=== PATIENT | male | born 1950 | race Caucasian/White ===

== ENCOUNTER 2018-04-15 09:29 | Day surgery (SDC) | payer MEDICARE, OTHER ==
[2018-04-10 13:35] VITALS: BMI 29.8
[2018-04-15] MEDS ORDERED: Lidocaine 1% PF 5 ML VIAL ONE (14:06)
[2018-04-15] MEDS ORDERED: PROPOFOL 200 MG/20 ML VIAL ONE (14:06)
--- NOTE | 2018-04-15 14:28 | OP ---
PREOPERATIVE DIAGNOSES: 1. Personal history of colon polyps. 2. Family history of colon cancer. PROCEDURE: After informed consent was obtained, the patient was placed in left lateral decubitus pos ition. Anesthesia was administered per the Anesthesia Department. Forward-viewing colonoscope was i nserted into the rectum and passed to the cecum with ease. The cecum, ileocecal valve, and appendice al orifice were normal. The prep was excellent. The terminal ileum was normal. The ascending, wallace sverse, descending, sigmoid and rectum were normal except for some very small polyps in the splenic f lexure, descending, and sigmoid. They were all removed with cold snare polypectomy. The descending and sigmoid also were notable for diverticula. Retroflexion in the rectum showed small internal hemo rrhoids. ASSESSMENT: 1. Three small colon polyps - status post cold snare polypectomy. 2. Left-sided diverticulosis coli. 3. Small internal hemorrhoids. 4. Otherwise normal ileal colonoscopy. RECOMMENDATIONS: 1. Await histopathology. 2. Repeat colonoscopy pending histopathology. 3. Hold Xarelto until tomorrow.
== END 2018-04-15 13:25 | disposition home or self-care (01) ==
LOC: SDC 09:29
PROVIDERS: ATTEND Internal Medicine Gastroenterology
PROC: 0DBM8ZX Excision of Descending Colon, Via Natural or Artificial Opening Endoscopic, Diagnostic (ICD-10-PCS; principal; 2018-04-15)
PROC: 0DBL8ZX Excision of Transverse Colon, Via Natural or Artificial Opening Endoscopic, Diagnostic (ICD-10-PCS; 2018-04-15)
PROC: 0DBN8ZZ Excision of Sigmoid Colon, Via Natural or Artificial Opening Endoscopic (ICD-10-PCS; 2018-04-15)
DX: Z12.11 Encounter for screening for malignant neoplasm of colon (principal); D12.3 Benign neoplasm of transverse colon; D12.4 Benign neoplasm of descending colon; K63.5 Polyp of colon; K57.30 Diverticulosis of large intestine without perforation or abscess without bleeding; K64.8 Other hemorrhoids; Z86.010 Personal history of colon polyps; Z79.01 Long term (current) use of anticoagulants; Z79.899 Other long term (current) drug therapy; Z80.0 Family history of malignant neoplasm of digestive organs
CPT/HCPCS: 88305; J2001; J2704

== ENCOUNTER 2018-11-22 11:21 | Emergency (ER) | payer MEDICARE, OTHER ==
[2018-11-22 12:09] LABS: #Basophils 0.1 thou/uL (0.0-0.2); #Eosinphils 0.1 thou/uL (0.0-0.7); #Lymphocytes 1.5 thou/uL (1.20-3.40); #Neutrophils 6.5 thou/uL (1.40-6.50); %Basophils 0.7 % (0.0-1.0); %Lymphocytes 16.1 % (21.0-51.0); %Monocytes 10.8 % (0.0-10.0); %Neutrophils 71.4 % (42.0-75.0); Hemoglobin 17.2 g/dL (14.0-18.0); Mean Corpuscular HGB CONC 33.3 g/dL (32.0-36.0); Mean Corpuscular Hemoglobin 30.6 pg (27.0-31.0); Mean Platelet Volume 11.8 fL (7.4-10.4); Platelet Count 164 thou/uL (130-400); Red Blood Cell (RBC) Count 5.63 mill/uL (4.70-6.10); White Blood Cell (WBC) Count 9.1 thou/uL (4.8-10.8)
[2018-11-22 12:16] LABS: ALT (SGPT) 29 U/L (8-55); AST (SGOT) 21 U/L (5-34); Albumin 4.2 g/dL (3.4-4.8); Alkaline Phosphatase 98 U/L (40-150); Anion Gap 12 mmol/L (10-20); BUN (Urea Nitrogen) 16 mg/dL (8.4-25.7); Calc. Creatinine Clearance 0 mL/min (70-130); Carbon Dioxide 25 mmol/L (23-31); Chloride 105 mmol/L (98-107); Estimated GFR-MDRD 68; Glucose 96 mg/dL (80-115); Potassium 4.3 mmol/L (3.5-5.1); Protein, Total 7.2 g/dL (5.8-8.1); Sodium 138 mmol/L (136-145)
--- NOTE | 2018-11-22 12:21 | RAD ---
EXAM: Single view of the chest HISTORY: Dizziness and nausea COMPARISON: 08/08/2013 FINDINGS: Single view of the chest shows a normal sized cardiomediastinal silhouette. The pacemaker is unchanged in position. No consolidation is seen. There is obscurity of the left hemidiaphragm which may represent a small left pleural effusion. The bones are unremarkable. IMPRESSION: Possible small left pleural effusion.
--- NOTE | 2018-11-22 12:35 | CT ---
EXAM: CT brain without contrast HISTORY: Dizziness and nausea COMPARISON: 08/06/2013 TECHNIQUE: Multiple contiguous axial images were obtained and a CT of the brain without contrast. FINDINGS: The brain is normal in morphology and attenuation without focal lesions or confluent areas of infarction. There is no evidence of hydrocephalus, intracranial hemorrhage, or extra-axial fluid collection. The calvarium and overlying soft tissues are unremarkable. A small amount of fluid is seen in the connor ateral maxillary sinuses. The other visualized paranasal sinuses and mastoid air cells are well aerated. IMPRESSION: No evidence of acute intracranial abnormality
== END 2018-11-22 12:55 | disposition home or self-care (01) ==
LOC: SCSER 11:21
DX: R55 Syncope and collapse (principal); E78.5 Hyperlipidemia, unspecified; I10 Essential (primary) hypertension; Z79.899 Other long term (current) drug therapy
CPT/HCPCS: 70450; 71045; 80053; 84484; 85025; 93005

== ENCOUNTER 2018-11-29 07:20 | Outpatient (CLI) | payer MEDICARE, OTHER ==
[2018-11-29 10:52] LABS: Hemoglobin 16.6 g/dL (14.0-18.0); Mean Corpuscular HGB CONC 31.8 g/dL (32.0-36.0); Mean Corpuscular Hemoglobin 30.4 pg (27.0-31.0); Mean Corpuscular Volume 95.6 fL (78.0-98.0); Mean Platelet Volume 8.7 fL (7.4-10.4); Platelet Count 210 thou/uL (130-400); RBC Distribution Width 12.5 % (11.5-14.5); Red Blood Cell (RBC) Count 5.45 mill/uL (4.70-6.10); White Blood Cell (WBC) Count 7.2 thou/uL (4.8-10.8)
[2018-11-29 11:16] LABS: ALT (SGPT) 26 U/L (8-55); AST (SGOT) 22 U/L (5-34); Alkaline Phosphatase 96 U/L (40-150); Anion Gap 11 mmol/L (10-20); BUN (Urea Nitrogen) 15 mg/dL (8.4-25.7); Bilirubin, Total 0.9 mg/dL (0.2-1.2); Calc. Creatinine Clearance 0 mL/min (70-130); Calcium 9.6 mg/dL (7.8-10.44); Carbon Dioxide 24 mmol/L (23-31); Chloride 107 mmol/L (98-107); Estimated GFR-MDRD 83; Globulin 2.5 g/dL (2.4-3.5); Glucose 97 mg/dL (80-115); Potassium 4.4 mmol/L (3.5-5.1); Protein, Total 6.5 g/dL (5.8-8.1); Sodium 138 mmol/L (136-145)
== END 2018-11-29 07:21 | disposition home or self-care (01) ==
LOC: LABBT 07:20
PROVIDERS: ATTEND Internal Medicine Cardiovascular Disease
DX: Z01.812 Encounter for preprocedural laboratory examination (principal); R55 Syncope and collapse
CPT/HCPCS: 80053; 85027

== ENCOUNTER 2018-12-02 06:28 | Day surgery (SDC) | payer MEDICARE, OTHER ==
[2018-11-29 09:52] VITALS: BMI 30.7
[2018-12-02] MEDS ORDERED: Lidocaine 1% (PF) 30 ML VIAL ONE (07:19)
[2018-12-02] MEDS ORDERED: Fentanyl 100 MCG/2 ML VIAL ONE (08:25)
[2018-12-02] MEDS ORDERED: Midazolam HCl 2 mg/2 ml Vial ONE (08:25)
[2018-12-02] MEDS ORDERED: Iopamidol 370 76% 100 ML VIAL ONE (09:42)
== END 2018-12-02 15:55 | disposition home or self-care (01) ==
LOC: CCL 06:28
PROVIDERS: ATTEND Internal Medicine Cardiovascular Disease
PROC: 4A023N7 Measurement of Cardiac Sampling and Pressure, Left Heart, Percutaneous Approach (ICD-10-PCS; principal; 2018-12-02)
PROC: B2111ZZ Fluoroscopy of Multiple Coronary Arteries using Low Osmolar Contrast (ICD-10-PCS; 2018-12-02)
DX: I47.2 Ventricular tachycardia (principal); I48.0 Paroxysmal atrial fibrillation; E78.5 Hyperlipidemia, unspecified; I10 Essential (primary) hypertension; Z95.810 Presence of automatic (implantable) cardiac defibrillator; Z79.01 Long term (current) use of anticoagulants; Z79.899 Other long term (current) drug therapy
CPT/HCPCS: 76942; 93458; 99152; C1769; J1644; J2001; J2250; J3010; Q9967

== ENCOUNTER 2019-02-03 06:33 | Day surgery (SDC) | payer MEDICARE, OTHER ==
[2019-01-31 09:17] VITALS: BMI 30.7
[2019-02-03] MEDS ORDERED: PROPOFOL 20 ML ONE (10:28)
--- NOTE | 2019-02-04 09:27 | OP ---
DATE OF PROCEDURE: 02/03/2019 PROCEDURE PERFORMED: External cardioversion. REASON FOR PROCEDURE: Mr. Babin is a 68-year-old man with history of ventricular tachycardia. He underwent repeated ventricular tachycardia ablation procedures on December 07, 2018 and epicardial ablation on January 07, 2019. He did develop coarse atrial flutter/fibrillation and he has been placed on Multaq on January 27, 2019. He has been well anticoagulated on Xarelto without fail. He is receiving colchicine for suppression of potential pericardial irritation from the ablation. DESCRIPTION OF PROCEDURE: The patient received propofol by Anesthesia specialist. The ICD was interrogated pre and post device and atrial ATPs were programmed on after the procedure, adequate function noted as well. After adequate level of sedation achieved, a 35-joule internal shocks had not successfully cardioverted the patient. Hence, an external 200-joule shock was delivered, which on the other hand successfully cardioverted him back to sinus rhythm. Device function was adequate pre and post procedure. The patient tolerated the procedure well. No complications noted. PLAN: Continue Multaq, Xarelto, and previous beta-tom dose of metoprolol succinate 75 mg a day. Job ID: [id number]
== END 2019-02-03 12:10 | disposition home or self-care (01) ==
LOC: CCL 06:33
PROVIDERS: ATTEND Internal Medicine Cardiovascular Disease
PROC: 5A2204Z Restoration of Cardiac Rhythm, Single (ICD-10-PCS; principal; 2019-02-03)
DX: I48.0 Paroxysmal atrial fibrillation (principal); I48.3 Typical atrial flutter; I10 Essential (primary) hypertension; I45.10 Unspecified right bundle-branch block; Z79.01 Long term (current) use of anticoagulants; Z79.899 Other long term (current) drug therapy; Z95.0 Presence of cardiac pacemaker
CPT/HCPCS: 92960; J2704

== ENCOUNTER 2020-07-12 05:13 | Day surgery (SDC) | payer MEDICARE ==
[2020-07-08 14:07] VITALS: BMI 33.4
[2020-07-12] MEDS ORDERED: PROPOFOL 40 ML ONE (07:05)
--- NOTE | 2020-07-20 22:28 | ECHO ---
PROCEDURE: Transesophageal echocardiogram. REASON FOR PROCEDURE: Mr. Babin is a 70-year-old man with prior history of atrial fibrillation, status post pulmonary venous isolation procedure on June 09, 2019, also prior VT ablation in the past. He also has a dual-chamber pacemaker in place. He is maintaining sinus rhythm since his last ablation. Ablation note suggest left atrial appendage delaying but not completely isolating left atrial appendage. He is wishing to come off oral anticoagulation. NINFA is performed to assess left atrial appendage function. DESCRIPTION OF PROCEDURE: The patient received propofol by Anesthesia specialist. After an adequate level of sedation achieved, the standard transesophageal echocardiogram probe was passed into the esophagus without difficulty. The patient tolerated the procedure well. No complications noted. RESULTS: Left atrium is moderately enlarged, about 5 cm in horizontal diameter. Left atrial appendage is well visualized and contains no clots. Left atrial appendage velocities are adequate, over 50 cm/sec. Tissue Dopplers also obtained from the left atrial appendage demonstrating adequate motion during the atrial systole. Mitral valve has mild regurgitation. Mitral inflow pattern reveals adequate atrial function with adequate A-wave on the mitral inflow pattern. The left ventricular systolic function is preserved. LV and RV size are normal. Interatrial and interventricular septum are free of defects. Tricuspid valve has trace regurgitation. Aortic valve has 3 leaflets without regurgitation or stenosis. The pulmonic valve appears normal without regurgitation or stenosis. The pericardial space is without effusion. The visualized portion of ascending and descending aorta without aneurysm, dissection, or significant atheroma. CONCLUSION: 1. No evidence of left atrial appendage thrombus and adequate left atrial appendage function is noted. 2. Moderate left atrial enlargement. 3. Mild mitral regurgitation. 4. Normal LV systolic function. 5. Normal diastolic function by LV filling pattern. 6. Four pulmonary veins without stenosis. PLAN: Likely reasonable to stop Xarelto and resume aspirin only. Consider restarting oral anticoagulation if atrial fibrillation is seen in the future. Job ID: [id number] [facility]
== END 2020-07-12 08:14 | disposition home or self-care (01) ==
LOC: CCL 05:13
PROVIDERS: ATTEND Internal Medicine Cardiovascular Disease
PROC: B24BZZ4 Ultrasonography of Heart with Aorta, Transesophageal (ICD-10-PCS; principal; 2020-07-12)
DX: I48.0 Paroxysmal atrial fibrillation (principal); I34.0 Nonrheumatic mitral (valve) insufficiency; I47.2 Ventricular tachycardia; I10 Essential (primary) hypertension; I45.10 Unspecified right bundle-branch block; Z79.01 Long term (current) use of anticoagulants; Z79.899 Other long term (current) drug therapy; Z95.810 Presence of automatic (implantable) cardiac defibrillator
CPT/HCPCS: 93312; J2704

== ENCOUNTER 2020-08-12 16:42 | Inpatient (IN) | payer MEDICARE ==
[2020-08-12 18:02] LABS: #Basophils 0.1 thou/uL (0.0-0.2); #Eosinphils 0.1 thou/uL (0.0-0.7); #Lymphocytes 1.9 thou/uL (1.20-3.40); #Monocytes 0.7 thou/uL (0.11-0.59); #Neutrophils 5.3 thou/uL (1.40-6.50); %Basophils 0.7 % (0.0-1.0); %Eosinophils 0.9 % (0.0-10.0); %Lymphocytes 23.9 % (21.0-51.0); %Monocytes 8.5 % (0.0-10.0); Hemoglobin 17.5 g/dL (14.0-18.0); Mean Corpuscular HGB CONC 32.9 g/dL (32.0-36.0); Mean Corpuscular Hemoglobin 31.6 pg (27.0-31.0); Mean Corpuscular Volume 96.1 fL (78.0-98.0); Mean Platelet Volume 9.4 fL (7.4-10.4); Platelet Count 177 thou/uL (130-400); RBC Distribution Width 13.3 % (11.5-14.5); Red Blood Cell (RBC) Count 5.54 mill/uL (4.70-6.10); White Blood Cell (WBC) Count 8.1 thou/uL (4.8-10.8)
[2020-08-12 19:03] LABS: ALT (SGPT) 26 U/L (8-55); AST (SGOT) 24 U/L (5-34); Albumin 4.2 g/dL (3.4-4.8); Alkaline Phosphatase 94 U/L (40-110); Anion Gap 15 mmol/L (10-20); BUN (Urea Nitrogen) 15 mg/dL (8.4-25.7); Bilirubin, Total 0.7 mg/dL (0.2-1.2); Calc. Creatinine Clearance 0 mL/min (70-130); Calcium 9.6 mg/dL (7.8-10.44); Carbon Dioxide 21 mmol/L (23-31); Chloride 109 mmol/L (98-107); Globulin 2.7 g/dL (2.4-3.5); Glucose 100 mg/dL (83-110); Magnesium 2.1 mg/dL (1.6-2.6); Potassium 4.7 mmol/L (3.5-5.1); Protein, Total 6.9 g/dL (5.8-8.1); Sodium 140 mmol/L (136-145)
[2020-08-12] MEDS ORDERED: Sotalol HCl 80 MG TAB PO SCH (19:45)
[2020-08-12] MEDS ORDERED: Acetaminophen 325 MG TAB PO PRN (20:01)
[2020-08-12 22:52] LABS: Troponin I Less than 0.010 ng/mL (< 0.028)
[2020-08-12 23:36] LABS: SARS-CoV-2 NAA Rapid Test Not Detected (NotDetected)
[2020-08-13] MEDS: Atorvastatin Calcium 10 MG TAB PO SCH ×2 (00:20→21:30)
[2020-08-13 01:37] LABS: Troponin I Less than 0.010 ng/mL (< 0.028)
[2020-08-13 02:16] LABS: #Basophils 0.1 thou/uL (0.0-0.2); #Eosinphils 0.1 thou/uL (0.0-0.7); #Monocytes 0.8 thou/uL (0.11-0.59); #Neutrophils 5.3 thou/uL (1.40-6.50); %Basophils 0.8 % (0.0-1.0); %Lymphocytes 24.7 % (21.0-51.0); %Monocytes 9.7 % (0.0-10.0); %Neutrophils 63.8 % (42.0-75.0); Hemoglobin 16.6 g/dL (14.0-18.0); Mean Corpuscular HGB CONC 34.5 g/dL (32.0-36.0); Mean Corpuscular Volume 95.5 fL (78.0-98.0); Mean Platelet Volume 10.6 fL (7.4-10.4); Platelet Count 157 thou/uL (130-400); RBC Distribution Width 13.1 % (11.5-14.5); Red Blood Cell (RBC) Count 5.03 mill/uL (4.70-6.10); White Blood Cell (WBC) Count 8.2 thou/uL (4.8-10.8)
[2020-08-13 03:06] LABS: Anion Gap 14 mmol/L (10-20); BUN (Urea Nitrogen) 16 mg/dL (8.4-25.7); Calc. Creatinine Clearance 101 mL/min (70-130); Calcium 9.1 mg/dL (7.8-10.44); Carbon Dioxide 21 mmol/L (23-31); Chloride 110 mmol/L (98-107); Glucose 100 mg/dL (83-110); Magnesium 2.1 mg/dL (1.6-2.6); Potassium 3.8 mmol/L (3.5-5.1); Sodium 141 mmol/L (136-145)
[2020-08-13 05:58] VITALS: BMI 30.7
[2020-08-13] MEDS ORDERED: Potassium Chloride 20 MEQ TAB PO SCH (07:30)
[2020-08-13] MEDS: Aspirin 81 mg Enteric Coated Tablet PO SCH (09:29)
[2020-08-13] MEDS: Sotalol HCl 80 MG TAB PO SCH ×2 (09:29→21:26)
[2020-08-13] MEDS: Enoxaparin Sodium 40 MG/0.4 ML SYRINGE SC SCH (09:31)
[2020-08-14 04:17] LABS: #Basophils 0.1 thou/uL (0.0-0.2); #Eosinphils 0.1 thou/uL (0.0-0.7); #Lymphocytes 2.4 thou/uL (1.20-3.40); #Monocytes 0.6 thou/uL (0.11-0.59); #Neutrophils 3.8 thou/uL (1.40-6.50); %Basophils 0.8 % (0.0-1.0); %Eosinophils 1.5 % (0.0-10.0); %Lymphocytes 34.8 % (21.0-51.0); %Monocytes 8.5 % (0.0-10.0); %Neutrophils 54.3 % (42.0-75.0); Hemoglobin 16.7 g/dL (14.0-18.0); Mean Corpuscular HGB CONC 34.2 g/dL (32.0-36.0); Mean Corpuscular Hemoglobin 32.4 pg (27.0-31.0); Mean Corpuscular Volume 94.9 fL (78.0-98.0); Mean Platelet Volume 9.1 fL (7.4-10.4); Platelet Count 153 thou/uL (130-400); RBC Distribution Width 12.8 % (11.5-14.5); Red Blood Cell (RBC) Count 5.14 mill/uL (4.70-6.10); White Blood Cell (WBC) Count 6.9 thou/uL (4.8-10.8)
[2020-08-14 04:42] LABS: Anion Gap 14 mmol/L (10-20); BUN (Urea Nitrogen) 12 mg/dL (8.4-25.7); Calc. Creatinine Clearance 112 mL/min (70-130); Calcium 8.7 mg/dL (7.8-10.44); Carbon Dioxide 20 mmol/L (23-31); Chloride 108 mmol/L (98-107); Glucose 89 mg/dL (83-110); Potassium 3.8 mmol/L (3.5-5.1); Sodium 138 mmol/L (136-145)
[2020-08-14] MEDS: Sotalol HCl 80 MG TAB PO SCH ×2 (08:57→21:08)
[2020-08-14] MEDS: Aspirin 81 mg Enteric Coated Tablet PO SCH (08:57)
[2020-08-14] MEDS: Enoxaparin Sodium 40 MG/0.4 ML SYRINGE SC SCH (08:57)
[2020-08-14] MEDS: Atorvastatin Calcium 10 MG TAB PO SCH (21:08)
[2020-08-15 04:45] LABS: #Basophils 0.1 thou/uL (0.0-0.2); #Eosinphils 0.1 thou/uL (0.0-0.7); #Lymphocytes 2.7 thou/uL (1.20-3.40); #Monocytes 0.7 thou/uL (0.11-0.59); #Neutrophils 4.3 thou/uL (1.40-6.50); %Basophils 0.8 % (0.0-1.0); %Eosinophils 1.6 % (0.0-10.0); %Lymphocytes 33.7 % (21.0-51.0); %Monocytes 8.9 % (0.0-10.0); %Neutrophils 54.9 % (42.0-75.0); Hemoglobin 16.4 g/dL (14.0-18.0); Mean Corpuscular HGB CONC 32.6 g/dL (32.0-36.0); Mean Corpuscular Hemoglobin 30.9 pg (27.0-31.0); Mean Corpuscular Volume 94.7 fL (78.0-98.0); Mean Platelet Volume 9.1 fL (7.4-10.4); Platelet Count 155 thou/uL (130-400); RBC Distribution Width 12.9 % (11.5-14.5); Red Blood Cell (RBC) Count 5.29 mill/uL (4.70-6.10); White Blood Cell (WBC) Count 7.9 thou/uL (4.8-10.8)
[2020-08-15 06:40] LABS: Anion Gap 12 mmol/L (10-20); BUN (Urea Nitrogen) 15 mg/dL (8.4-25.7); Calc. Creatinine Clearance 103 mL/min (70-130); Calcium 8.7 mg/dL (7.8-10.44); Carbon Dioxide 23 mmol/L (23-31); Chloride 108 mmol/L (98-107); Glucose 94 mg/dL (83-110); Potassium 3.8 mmol/L (3.5-5.1); Sodium 139 mmol/L (136-145)
[2020-08-15] MEDS: Aspirin 81 mg Enteric Coated Tablet PO SCH (09:00)
[2020-08-15] MEDS: Sotalol HCl 80 MG TAB PO SCH ×2 (09:01→19:11)
[2020-08-15] MEDS: Enoxaparin Sodium 40 MG/0.4 ML SYRINGE SC SCH (09:03)
[2020-08-15 17:33] VITALS: BP 143/96; TEMP 97.2
== END 2020-08-15 19:20 | disposition home or self-care (01) | DRG 310 ==
LOC: ERS 16:42 → CCU 21:57 → 2NO 08-13 18:24
PROVIDERS: ADMIT Internal Medicine; ATTEND Internal Medicine
DX: I47.2 Ventricular tachycardia (principal); I10 Essential (primary) hypertension; E78.2 Mixed hyperlipidemia; Z20.822 Contact with and (suspected) exposure to COVID-19; Z95.810 Presence of automatic (implantable) cardiac defibrillator
CPT/HCPCS: 36415; 80048; 80053; 83735; 84484; 85025; 93005; 93010; J1650; U0002

== ENCOUNTER 2020-09-27 23:32 | Inpatient (IN) | payer MEDICARE ==
[2020-09-27] MEDS ORDERED: Lidocaine 2% PF 100 mg/5 ml Syringe ONE (23:39)
[2020-09-27] MEDS ORDERED: Amiodarone 450 MG in Dextrose 5% in Water 250 ML IVPB SCH (23:45)
[2020-09-28 00:03] LABS: #Basophils 0.1 thou/uL (0.0-0.2); #Eosinphils 0.1 thou/uL (0.0-0.7); #Monocytes 0.4 thou/uL (0.11-0.59); #Neutrophils 2.8 thou/uL (1.40-6.50); %Basophils 1.7 % (0.0-1.0); %Eosinophils 1.5 % (0.0-10.0); %Lymphocytes 47.4 % (21.0-51.0); %Monocytes 5.5 % (0.0-10.0); %Neutrophils 43.9 % (42.0-75.0); Hemoglobin 17.7 g/dL (14.0-18.0); Mean Corpuscular HGB CONC 33.2 g/dL (32.0-36.0); Mean Corpuscular Hemoglobin 31.5 pg (27.0-31.0); Mean Platelet Volume 9.3 fL (7.4-10.4); Platelet Count 180 thou/uL (130-400); RBC Distribution Width 12.7 % (11.5-14.5); Red Blood Cell (RBC) Count 5.62 mill/uL (4.70-6.10); White Blood Cell (WBC) Count 6.3 thou/uL (4.8-10.8)
[2020-09-28] MEDS ORDERED: DEXTROSE 5% IVPB SCH ×3 (00:15)
[2020-09-28] MEDS ORDERED: WATER IVPB SCH ×3 (00:15)
[2020-09-28] MEDS ORDERED: PROCAINAMIDE IVPB SCH ×3 (00:15)
[2020-09-28] MEDS ORDERED: Acetaminophen 325 MG TAB PO PRN (00:37)
[2020-09-28] MEDS ORDERED: Ondansetron ODT 4 MG TAB PO PRN (00:37)
[2020-09-28] MEDS ORDERED: Ondansetron PF 4 MG/2 ML Vial IVP PRN (00:37)
[2020-09-28 00:54] LABS: Chloride 107 mmol/L (98-107); Potassium 4.2 mmol/L (3.5-5.1); Sodium 137 mmol/L (136-145)
[2020-09-28 00:58] LABS: ALT (SGPT) 36 U/L (8-55); AST (SGOT) 38 U/L (5-34); Albumin 4.1 g/dL (3.4-4.8); Alkaline Phosphatase 96 U/L (40-110); BUN (Urea Nitrogen) 17 mg/dL (8.4-25.7); Bilirubin, Total 0.6 mg/dL (0.2-1.2); Calc. Creatinine Clearance 0 mL/min (70-130); Carbon Dioxide 18 mmol/L (23-31); Globulin 3.6 g/dL (2.4-3.5); Glucose 131 mg/dL (83-110); Protein, Total 7.7 g/dL (5.8-8.1)
[2020-09-28 01:15] LABS: Anion Gap 16 mmol/L (10-20)
[2020-09-28 01:42] LABS: SARS-CoV-2 NAA Rapid Test Not Detected (NotDetected)
[2020-09-28 04:23] VITALS: BMI 30.8
[2020-09-28 04:34] VITALS: BP 144/87
[2020-09-28 04:45] LABS: #Basophils 0.1 thou/uL (0.0-0.2); #Eosinphils 0.1 thou/uL (0.0-0.7); #Lymphocytes 2.2 thou/uL (1.20-3.40); #Monocytes 0.8 thou/uL (0.11-0.59); #Neutrophils 6.8 thou/uL (1.40-6.50); %Basophils 0.7 % (0.0-1.0); %Monocytes 7.7 % (0.0-10.0); %Neutrophils 68.7 % (42.0-75.0); Hemoglobin 15.8 g/dL (14.0-18.0); Mean Corpuscular HGB CONC 32.7 g/dL (32.0-36.0); Mean Corpuscular Hemoglobin 30.9 pg (27.0-31.0); Mean Corpuscular Volume 94.5 fL (78.0-98.0); Mean Platelet Volume 10.1 fL (7.4-10.4); Platelet Count 161 thou/uL (130-400); RBC Distribution Width 12.6 % (11.5-14.5); White Blood Cell (WBC) Count 9.8 thou/uL (4.8-10.8)
[2020-09-28 05:05] LABS: Anion Gap 14 mmol/L (10-20); BUN (Urea Nitrogen) 15 mg/dL (8.4-25.7); Calc. Creatinine Clearance 102 mL/min (70-130); Calcium 9.3 mg/dL (7.8-10.44); Carbon Dioxide 17 mmol/L (23-31); Chloride 109 mmol/L (98-107); Glucose 125 mg/dL (83-110); Potassium 3.7 mmol/L (3.5-5.1); Sodium 136 mmol/L (136-145)
[2020-09-28 06:15] LABS: Troponin I 0.671 ng/mL (< 0.028)
[2020-09-28] MEDS ORDERED: Vit A,C & E/Lutein/Minerals Tablet PO SCH (09:00)
[2020-09-28] MEDS ORDERED: Aspirin 81 mg Enteric Coated Tablet PO SCH (09:00)
[2020-09-28] MEDS ORDERED: Non-Formulary Item 1 EACH (Sotalol Hcl [Sotalol] 120 MG Tablet) PO SCH (09:00)
[2020-09-28] MEDS ORDERED: Enoxaparin Sodium 40 MG/0.4 ML SYRINGE SC SCH (09:00)
[2020-09-28] MEDS ORDERED: Amiodarone 450 MG, Admixture Fee 1 EACH in Dextrose 5% in Water 250 ML IVPB SCH (09:15)
[2020-09-28] MEDS ORDERED: Atorvastatin Calcium 10 MG TAB PO SCH (21:00)
[2020-09-28] MEDS ORDERED: Amlodipine 5 MG TAB PO SCH (21:00)
[2020-09-28 22:31] VITALS: TEMP 98.7
== END 2020-09-28 21:20 | disposition short-term general hospital (02) | DRG 310 ==
LOC: ERS 23:32 → ERHOLD 09-28 01:13 → IMCU/EMU 09-28 04:18
PROVIDERS: ADMIT Student in an Organized Health Care Education/Training Program; ATTEND Hospitalist
DX: I47.2 Ventricular tachycardia (principal); I10 Essential (primary) hypertension; E78.5 Hyperlipidemia, unspecified; R77.8 Other specified abnormalities of plasma proteins; I48.20 Chronic atrial fibrillation, unspecified; I45.10 Unspecified right bundle-branch block; Z20.822 Contact with and (suspected) exposure to COVID-19; Z95.0 Presence of cardiac pacemaker; Z79.82 Long term (current) use of aspirin
CPT/HCPCS: 0240U; 36415; 71045; 80048; 80053; 83735; 83880; 84484; 85025; 93005; 96374; 96375; J0282; J1650; J2001; J2690; J7070

== ENCOUNTER 2022-08-13 15:13 | Emergency (ER) | payer MEDICARE ==
[2022-08-13 16:34] LABS: #Lymphocytes 1.1 thou/uL (1.20-3.40); #Neutrophils 7.7 thou/uL (1.40-6.50); %Basophils 0.1 % (0.0-1.0); %Eosinophils 0.4 % (0.0-10.0); %Monocytes 9.7 % (0.0-10.0); %Neutrophils 78.7 % (42.0-75.0); Hemoglobin 16.3 g/dL (14.0-18.0); Mean Corpuscular HGB CONC 34.4 g/dL (32.0-36.0); Mean Corpuscular Hemoglobin 33.2 pg (27.0-31.0); Mean Corpuscular Volume 96.6 fl (78.0-98.0); Mean Platelet Volume 9.1 fL (7.4-10.4); Platelet Count 168 10x3/uL (130-400); RBC Distribution Width 12.8 % (11.5-14.5); Red Blood Cell (RBC) Count 4.91 mill/uL (4.70-6.10); White Blood Cell (WBC) Count 9.8 10x3/uL (4.8-10.8)
[2022-08-13 16:51] LABS: ALT (SGPT) 25 U/L (8-55); AST (SGOT) 22 U/L (5-34); Albumin 3.8 g/dL (3.4-4.8); Alkaline Phosphatase 105 U/L (40-110); Anion Gap 12 mmol/L (10-20); BUN (Urea Nitrogen) 13 mg/dL (8.4-25.7); Bilirubin, Total 1.1 mg/dL (0.2-1.2); CK (CPK) 115 U/L (30-200); Calc. Creatinine Clearance 0 mL/min (70-130); Calcium 9.8 mg/dL (7.8-10.44); Carbon Dioxide 26 mmol/L (23-31); Chloride 105 mmol/L (98-107); Estimated GFR 90; Globulin 3.1 g/dL (2.4-3.5); Glucose 98 mg/dL (83-110); Potassium 4.6 mmol/L (3.5-5.1); Protein, Total 6.9 g/dL (5.8-8.1); Sodium 138 mmol/L (136-145)
== END 2022-08-13 17:22 | disposition home or self-care (01) ==
LOC: ERS 15:13
DX: L03.113 Cellulitis of right upper limb (principal); E78.00 Pure hypercholesterolemia, unspecified; I10 Essential (primary) hypertension; Y99.0 Civilian activity done for income or pay; Z79.899 Other long term (current) drug therapy
CPT/HCPCS: 36415; 80053; 82550; 84484; 85025